=== PATIENT | female | born 1990 | race African-American/Black ===

== ENCOUNTER 2017-05-01 16:11 | Emergency (ER) | payer SELFPAY ==
[2017-05-01] MEDS ORDERED: SODIUM CHLORIDE 0.9% 1,000 ML IV ONE (16:24)
--- NOTE | 2017-05-01 16:34 | ED Physician Documentation ---
History of Present Illness - Stated complaint Stated Complaint: FEMALE - Chief complaint Chief Complaint: General - History obtained from History obtained from: Patient - History of Present Illness Timing: How many weeks ago (6) Pain level max: 2 Pain level now: 1 Improved by: progesterone Worsened by: nothing - Additonal information Additional information: Patient is a 27-year-old female who presents to the emergency department complaining of vaginal bleeding for the past 6 weeks. Has been on progesterone for the past several weeks, states that the bleeding has decreased and intensity and is now like her normal menses. She is followed by gynecology at [facility]. States her appointment is on May 13. [place] lightheaded today and has been feeling weak. States near syncopal earlier today. Review of Systems Ten Systems: 10 systems reviewed and negative Constitutional: denies: Fever, Chills Ears: denies: Ear pain Nose: denies: Rhinorrhea / runny nose, Congestion Throat: denies: Sore throat Cardiac: denies: Chest pain / pressure Respiratory: denies: Cough GI: denies: Nausea, Vomiting, Constipation, Diarrhea : denies: Dysuria Skin: denies: Rash Musculoskeletal: denies: Neck pain, Back pain Neurologic: denies: Headache PD PAST MEDICAL HISTORY - Past Medical History Past Medical History: No - Past Surgical History General: Cholecystectomy, Appendectomy - Present Medications Home Medications: Ambulatory Orders Medication Instructions Recorded Confirmed Gabapentin 800 mg PO TID 03/16/16 05/01/17 raNITIdine [Zantac] 150 mg PO DAILY 03/16/16 05/01/17 Medroxyprogesterone Acetate 10 mg PO DAILY 05/01/17 05/01/17 [Provera] - Allergies Allergies/Adverse Reactions: Allergies Allergy/AdvReac Type Severity Reaction Status Date / Time amoxicillin Allergy Hives Verified 05/01/17 16:22 ketorolac tromethamine * Allergy Respiratory Verified 05/01/17 16:22 [From Toradol] latex Allergy Hives Verified 05/01/17 16:22 - Living Situation Living Arrangement: reports: At home - Social History Does the pt smoke?: No Smoking Status: Never smoker Does the pt drink ETOH?: Yes Does the pt have substance abuse?: No - Immunizations Immunizations are current?: Yes - POLST Patient has POLST: No PD ED PE NORMAL - Vitals Vital signs reviewed: Yes - General General: Alert and oriented X 3, No acute distress, Well developed/nourished - HEENT HEENT: PERRL, Moist mucous membranes - Neck Neck: Supple, no meningeal sign - Cardiac Cardiac: RRR - Respiratory Respiratory: No respiratory distress, Clear bilaterally - Abdomen Abdomen: Soft, Non tender, Non distended - Back Back: No CVA TTP, No spinal TTP - Derm Derm: Warm and dry - Neuro Neuro: Alert and oriented X 3 - Psych Psych: Normal mood, Normal affect Results - Vitals Vitals: Vital Signs - 24 hr 05/01/17 05/01/17 16:20 18:15 Temperature 37.5 C Heart Rate 99 88 Respiratory 18 14 Rate Blood Pressure 143/95 H 142/84 H O2 Saturation 100 99 Oxygen O2 Source Room air - Labs Labs: Laboratory Tests 05/01/17 05/01/17 05/01/17 16:40 16:40 16:40 WBC 6.0 RBC 5.09 Hgb 12.5 Hct 39.2 MCV 76.9 L MCH 24.5 L MCHC 31.9 L RDW 17.1 H Plt Count 350 MPV 8.0 Neut # 3.5 Lymph # 2.0 [place] # 0.4 Eos # 0.0 Baso # 0.0 Absolute Nucleated RBC 0.00 Nucleated RBC % 0.1 PT 12.6 INR 1.1 APTT 27.7 Sodium 136 Potassium 3.1 L Chloride 100 L Carbon Dioxide 26 Anion Gap 10.0 BUN 13 Creatinine 1.1 H Estimated GFR (MDRD) 73 L Glucose 94 Calcium 8.9 Total Bilirubin 0.3 AST 17 ALT 16 Alkaline Phosphatase 35 L Total Protein 7.3 Albumin 3.8 Globulin 3.5 Albumin/Globulin Ratio 1.1 Lipase 35 PD MEDICAL DECISION MAKING - ED course Complexity details: reviewed old records, reviewed results, re-evaluated patient , considered differential, d/w patient ED course: Patient is a 27-year-old female with dysfunctional uterine bleeding. Currently on progesterone. States her bleeding has slowed, but she was concerned about potential anemia today. Feels better after IV fluids and is ambulating with a steady gait. Declines pelvic exam. Hemoglobin is stable. We will have her follow-up with her doctor for further evaluation and care. Patient counseled regarding signs and symptoms for which I believe and urgent re-evaluation would be necessary. Patient with good understanding of and agreement to plan and is comfortable going home at this time This document was made in part using voice recognition software. While efforts are made to proofread this document, sound alike and grammatical errors may occur. Departure - Departure Disposition: 01 Home, Self Care Clinical Impression: Dysfunctional uterine bleeding Menorrhagia Qualifiers: Menorrahagia type: with irregular cycle Qualified Code(s): N92.1 - Excessive and frequent menstruation with irregular cycle Condition: Good Instructions: ED Bleeding Menstrual Heavy Follow-Up: Brayan Murray MD [Primary Care Provider] - Within 1 week Comments: Your blood counts are normal today. Return if you worsen. Continue the progesterone as prescribed by your drop wire builder. Discharge Date/Time: 05/01/17 18:38
[2017-05-01 16:57] LABS: BASOPHILS % (AUTO) 0.7 %; EOSINOPHILS % (AUTO) 0.3 %; HCT - HEMATOCRIT 39.2 % (37.0-47.0); HGB - HEMOGLOBIN 12.5 g/dL (12.0-16.0); LYMPHOCYTES % (AUTO) 33.4 %; MEAN CORPUSCULAR HEMOGLOBIN 24.5 pg (27.0-31.0); MEAN CORPUSCULAR HGB CONC 31.9 g/dL (32.0-36.0); MEAN CORPUSCULAR VOLUME 76.9 fL (81.0-99.0); MONOCYTES # (AUTO) 0.4 10^3/uL (0.0-1.0); MONOCYTES % (AUTO) 7.3 %; NEUTROPHILS # (AUTO) 3.5 10^3/uL (1.5-6.6); NEUTROPHILS % (AUTO) 58.3 %; NUCLEATED RED BLOOD CELLS AUTO 0.1 /100WBC; RED BLOOD COUNT 5.09 10^6/uL (4.20-5.40); RED CELL DISTRIBUTION WIDTH 17.1 % (12.0-15.0)
[2017-05-01 17:02] LABS: INR 1.1 (0.8-1.2); PT - PROTHROMBIN TIME 12.6 secs (9.9-12.6)
[2017-05-01 17:09] LABS: ALBUMIN/GLOBULIN RATIO 1.1 (1.0-2.2); BILIRUBIN,TOTAL 0.3 mg/dL (0.2-1.0); CALCIUM 8.9 mg/dL (8.5-10.3); CREATININE 1.1 mg/dL (0.4-1.0); POTASSIUM 3.1 mmol/L (3.5-5.0); TOTAL PROTEIN 7.3 g/dL (6.7-8.2)
[2017-05-01 17:10] LABS: PARTIAL THROMBOPLASTIN TIME 27.7 secs (24.9-33.3)
[2017-05-01] MEDS ORDERED: POTASSIUM BICARB 25 MEQ TABLET PO STA (17:11)
[2017-05-01] MEDS ORDERED: POTASSIUM BICARB 25 MEQ TABLET PO ONE (17:44)
[2017-05-01] MEDS ORDERED: ACETAMINOPHEN 325 MG TABLET PO ONE (17:44)
[2017-05-01] MEDS ORDERED: ACETAMINOPHEN 325 MG TABLET PO STA (17:45)
[2017-05-01 18:44] VITALS: BP 142/84
== END 2017-05-01 18:38 | disposition home or self-care (01) ==
LOC: ED 16:11
DX: N93.8 Other specified abnormal uterine and vaginal bleeding (principal); N92.1 Excessive and frequent menstruation with irregular cycle; Z79.899 Other long term (current) drug therapy
CPT/HCPCS: 36415; 80053; 83690; 85025; 85610; 85730; 96360; 96361; 99283; 99284; A9270; 86850; 86900; 86901